=== PATIENT | male | born 1995 | race American Indian/Alaskan Native ===

== ENCOUNTER 2018-11-25 15:51 | Outpatient (REF) | payer MEDICAID, SELFPAY ==
[2018-11-25 20:10] LABS: ALT 25 U/L (12-78); AST 16 U/L (15-37); Albumin 4.3 g/dL (3.4-5.0); Alkaline Phosphatase 65 U/L (46-116); Anion Gap 10.2 mmol/L (3-11); BUN 8 mg/dL (7-18); Bilirubin, Total 0.5 mg/dL (0.2-1.0); CO2 26.8 mmol/L (21.0-32.0); CREATININE 0.99 mg/dL (0.70-1.30); Calcium 9.4 mg/dL (8.5-10.1); Chloride 105 mmol/L (98-107); Glucose 78 mg/dL (70-100); Sodium 142 mmol/L (136-145); Total Protein 6.9 g/dL (6.4-8.2)
[2018-11-27 11:07] LABS: Syphilis Serology (RPR) Negative (Negative)
[2018-11-27 11:25] LABS: HIV-1/2 Ag & Ab Screen Negative (NEGAT)
[2018-11-27 12:50] LABS: Hepatitis C Ab w Rflx HCV PCR Negative (NEGAT)
== END 2018-11-25 16:11 ==
LOC: NCHCN 15:51
PROVIDERS: PCP Family Medicine; Visit Provider Family Medicine
DX: Z11.59 Encounter for screening for other viral diseases (principal); Z72.51 High risk heterosexual behavior; Z11.4 Encounter for screening for human immunodeficiency virus [HIV]; F10.20 Alcohol dependence, uncomplicated
CPT/HCPCS: 80053; 86803; 87389; 86592

== ENCOUNTER 2019-02-22 15:43 | Outpatient (REF) | payer MEDICAID, SELFPAY ==
[2019-02-24 09:28] LABS: Hepatitis C Ab w Rflx HCV PCR Negative (NEGAT)
[2019-02-24 09:33] LABS: HIV-1/2 Ag & Ab Screen Negative (NEGAT)
[2019-02-24 11:10] LABS: Syphilis Serology (RPR) Negative (Negative)
[2019-02-24 13:59] LABS: Chlamydia Result Negative; GC Result Negative; Specimen Description URINE
== END 2019-02-22 16:03 ==
LOC: NCHCN 15:43
PROVIDERS: PCP Family Medicine; Visit Provider Family Medicine
DX: Z72.51 High risk heterosexual behavior (principal); Z11.4 Encounter for screening for human immunodeficiency virus [HIV]; Z11.3 Encounter for screening for infections with a predominantly sexual mode of transmission; Z11.59 Encounter for screening for other viral diseases
CPT/HCPCS: 86803; 87389; 87491; 87591; 86592

== ENCOUNTER 2019-04-07 15:13 | Outpatient (REF) | payer MEDICAID, SELFPAY ==
[2019-04-07 20:33] LABS: ALT 36 U/L (12-78); AST 18 U/L (15-37); Albumin 4.1 g/dL (3.4-5.0); Alkaline Phosphatase 59 U/L (46-116); Anion Gap 12.4 mmol/L (3-11); BUN 10 mg/dL (7-18); Bilirubin, Total 0.6 mg/dL (0.2-1.0); CO2 24.6 mmol/L (21.0-32.0); CREATININE 0.87 mg/dL (0.70-1.30); Calcium 9.1 mg/dL (8.5-10.1); Chloride 105 mmol/L (98-107); Glucose 75 mg/dL (70-100); Potassium 3.8 mmol/L (3.5-5.1); Sodium 142 mmol/L (136-145); Total Protein 6.7 g/dL (6.4-8.2)
[2019-04-09 11:17] LABS: HIV-1/2 Ag & Ab Screen Negative (NEGAT); Hepatitis C Ab w Rflx HCV PCR Negative (NEGAT)
[2019-04-09 13:12] LABS: Syphilis Serology (RPR) Negative (Negative)
== END 2019-04-07 15:33 ==
LOC: NCHCN 15:13
PROVIDERS: PCP Family Medicine; Visit Provider Family Medicine
DX: F10.20 Alcohol dependence, uncomplicated (principal); Z72.51 High risk heterosexual behavior; Z11.4 Encounter for screening for human immunodeficiency virus [HIV]; Z11.59 Encounter for screening for other viral diseases
CPT/HCPCS: 80053; 86803; 87389; 86592

== ENCOUNTER 2019-06-21 16:35 | Outpatient (REF) | payer MEDICAID, SELFPAY ==
[2019-06-23 11:12] LABS: Syphilis Serology (RPR) Negative (Negative)
[2019-06-23 11:26] LABS: Hepatitis C Ab w Rflx HCV PCR Negative (NEGAT)
[2019-06-23 14:03] LABS: HIV-1/2 Ag & Ab Screen Negative (NEGAT)
[2019-06-23 14:14] LABS: Chlamydia Result Negative; GC Result Negative; Specimen Description URINE
== END 2019-06-21 16:55 ==
LOC: NCHCN 16:35
PROVIDERS: PCP Family Medicine; Visit Provider Family Medicine
DX: Z72.51 High risk heterosexual behavior (principal); Z11.4 Encounter for screening for human immunodeficiency virus [HIV]; Z11.59 Encounter for screening for other viral diseases; Z11.3 Encounter for screening for infections with a predominantly sexual mode of transmission
CPT/HCPCS: 86803; 87389; 87491; 87591; 86592

== ENCOUNTER 2019-10-08 13:14 | Outpatient (REF) | payer MEDICAID, SELFPAY ==
[2019-10-11 10:41] LABS: Hepatitis C Ab w Rflx HCV PCR Negative (Negative)
[2019-10-11 10:45] LABS: HIV-1/2 Ag & Ab Screen Negative (Negative)
[2019-10-11 12:14] LABS: Syphilis Serology (RPR) Negative (Negative)
[2019-10-11 14:38] LABS: Chlamydia Result Negative (Negative); GC Result Negative (Negative)
== END 2019-10-08 13:34 ==
LOC: NCHCN 13:14
PROVIDERS: PCP Family Medicine; Visit Provider Family Medicine
DX: Z72.51 High risk heterosexual behavior (principal); Z11.4 Encounter for screening for human immunodeficiency virus [HIV]; Z11.3 Encounter for screening for infections with a predominantly sexual mode of transmission; Z11.59 Encounter for screening for other viral diseases
CPT/HCPCS: 86803; 87389; 87491; 87591; 86592

== ENCOUNTER 2020-02-21 18:28 | Outpatient (REF) | payer MEDICAID, SELFPAY ==
[2020-02-21 17:29] LABS: ALT 28 U/L (16-63); AST 20 U/L (15-37); Albumin 4.4 g/dL (3.4-5.0); Alkaline Phosphatase 58 U/L (46-116); Anion Gap 7.5 mmol/L (3-11); BUN 9 mg/dL (7-18); Bilirubin, Total 0.7 mg/dL (0.2-1.0); CO2 28.5 mmol/L (21.0-32.0); CREATININE 0.85 mg/dL (0.70-1.30); Calcium 9.1 mg/dL (8.5-10.1); Chloride 104 mmol/L (98-107); Glucose 78 mg/dL (74-106); Potassium 4.2 mmol/L (3.5-5.1); Sodium 140 mmol/L (136-145); Total Protein 6.9 g/dL (6.4-8.2)
[2020-02-22 09:47] LABS: Hepatitis C Ab w Rflx HCV PCR Negative (Negative)
[2020-02-22 10:02] LABS: Syphilis Serology (RPR) Negative (Negative)
[2020-02-22 10:36] LABS: HIV-1/2 Ag & Ab Screen Negative (Negative)
[2020-02-23 08:57] LABS: Chlamydia Result Negative (Negative); GC Result Negative (Negative)
== END 2020-02-21 18:48 ==
LOC: NCHCN 18:28
PROVIDERS: PCP Family Medicine; Visit Provider Family Medicine
DX: F10.20 Alcohol dependence, uncomplicated (principal); Z72.51 High risk heterosexual behavior; Z11.3 Encounter for screening for infections with a predominantly sexual mode of transmission; Z11.4 Encounter for screening for human immunodeficiency virus [HIV]; Z11.59 Encounter for screening for other viral diseases
CPT/HCPCS: 80053; 86803; 87389; 87491; 87591; 86592

== ENCOUNTER 2020-04-28 18:09 | Outpatient (REF) | payer MEDICAID, SELFPAY ==
[2020-05-01 10:32] LABS: HIV-1/2 Ag & Ab Screen Negative (Negative)
[2020-05-01 10:50] LABS: Hepatitis C Ab w Rflx HCV PCR Negative (Negative)
[2020-05-01 11:41] LABS: Syphilis Serology (RPR) Negative (Negative)
[2020-05-01 14:07] LABS: Chlamydia Result Negative (Negative); GC Result Negative (Negative)
== END 2020-04-28 18:29 ==
LOC: NCHCN 18:09
PROVIDERS: PCP Family Medicine; Visit Provider Family Medicine
DX: Z72.51 High risk heterosexual behavior (principal); Z11.4 Encounter for screening for human immunodeficiency virus [HIV]; Z11.3 Encounter for screening for infections with a predominantly sexual mode of transmission; Z11.59 Encounter for screening for other viral diseases
CPT/HCPCS: 86803; 87389; 87491; 87591; 86592

== ENCOUNTER 2021-04-18 14:04 | Outpatient (REF) | payer MEDICAID, SELFPAY ==
[2021-04-20 09:24] LABS: HIV-1/2 Ag & Ab Screen Negative (Negative)
[2021-04-20 09:38] LABS: Hepatitis C Ab w Rflx HCV PCR Negative (Negative)
[2021-04-20 11:05] LABS: Syphilis Serology (RPR) Negative (Negative)
== END 2021-04-18 14:05 | disposition home or self-care (01) ==
LOC: NCHCN 14:04
PROVIDERS: PCP Family Medicine; Visit Provider Family Medicine
DX: Z72.51 High risk heterosexual behavior (principal)
CPT/HCPCS: 86803; 87389; 86592

== ENCOUNTER 2021-05-03 17:13 | Outpatient (REF) | payer MEDICAID, SELFPAY ==
[2021-05-04 15:25] LABS: Chlamydia Result Negative (Negative); GC Result Negative (Negative)
== END 2021-05-03 17:14 | disposition home or self-care (01) ==
LOC: NCHCN 17:13
PROVIDERS: PCP Family Medicine; Visit Provider Family Medicine
DX: Z72.51 High risk heterosexual behavior (principal)
CPT/HCPCS: 87491; 87591

== ENCOUNTER 2021-10-04 15:02 | Outpatient (REF) | payer MEDICAID, SELFPAY ==
[2021-10-08 11:38] LABS: Hepatitis C Ab w Rflx HCV PCR Negative (Negative)
[2021-10-08 11:40] LABS: HIV-1/2 Ag & Ab Screen Negative (Negative)
[2021-10-08 15:34] LABS: Chlamydia Result Negative (Negative); GC Result Negative (Negative)
[2021-10-09 18:03] LABS: Syphilis Serology (RPR) Negative (Negative)
== END 2021-10-04 15:03 | disposition home or self-care (01) ==
LOC: NCHCN 15:02
PROVIDERS: PCP Family Medicine; Visit Provider Family Medicine
DX: Z72.51 High risk heterosexual behavior (principal); Z11.4 Encounter for screening for human immunodeficiency virus [HIV]; R51.9 Headache, unspecified; Z11.59 Encounter for screening for other viral diseases
CPT/HCPCS: 86803; 87389; 87491; 87591; 86592

== ENCOUNTER 2022-01-16 12:11 | Outpatient (REF) | payer MEDICAID, SELFPAY ==
[2022-01-17 10:11] LABS: Syphilis Serology (RPR) Negative (Negative)
[2022-01-17 10:41] LABS: Hepatitis C Ab w Rflx HCV PCR Negative (Negative)
[2022-01-17 11:16] LABS: HIV-1/2 Ag & Ab Screen Negative (Negative)
[2022-01-17 14:39] LABS: Chlamydia Result Negative (Negative)
[2022-01-17 16:47] LABS: GC Result Positive (Negative)
== END 2022-01-16 12:12 | disposition home or self-care (01) ==
LOC: NCHCN 12:11
PROVIDERS: PCP Family Medicine; Visit Provider Family Medicine
DX: R36.9 Urethral discharge, unspecified (principal); Z72.51 High risk heterosexual behavior; Z11.4 Encounter for screening for human immunodeficiency virus [HIV]; Z11.59 Encounter for screening for other viral diseases; Z11.3 Encounter for screening for infections with a predominantly sexual mode of transmission
CPT/HCPCS: 86803; 87389; 87491; 87591; 86592

== ENCOUNTER 2022-03-01 17:01 | Outpatient (REF) | payer MEDICAID, SELFPAY ==
[2022-03-01 13:37] LABS: ALT 250 U/L (16-63); AST 99 U/L (15-37); Alkaline Phosphatase 75 U/L (46-116); Anion Gap 8.2 mmol/L (3-11); BUN 12 mg/dL (7-18); Bilirubin, Total 0.4 mg/dL (0.2-1.0); CO2 26.8 mmol/L (21.0-32.0); CREATININE 0.9 mg/dL (0.70-1.30); Calcium 8.9 mg/dL (8.5-10.1); Chloride 105 mmol/L (98-107); Glucose 99 mg/dL (74-106); Potassium 3.9 mmol/L (3.5-5.1); Sodium 140 mmol/L (136-145); Total Protein 7.2 g/dL (6.4-8.2)
[2022-03-04 10:31] LABS: HIV-1/2 Ag & Ab Screen Negative (Negative)
[2022-03-04 12:34] LABS: Syphilis Serology (RPR) Negative (Negative)
[2022-03-04 15:28] LABS: Chlamydia Result Negative (Negative); GC Result Negative (Negative)
== END 2022-03-01 17:02 | disposition home or self-care (01) ==
LOC: NCHCN 17:01
PROVIDERS: PCP Family Medicine; Visit Provider Physician Assistant
DX: Z72.51 High risk heterosexual behavior (principal); Z11.4 Encounter for screening for human immunodeficiency virus [HIV]; Z11.3 Encounter for screening for infections with a predominantly sexual mode of transmission
CPT/HCPCS: 80053; 87389; 87491; 87591; 86592

== ENCOUNTER 2022-04-22 02:23 | Outpatient (CLI) | payer MEDICAID, SELFPAY ==
[2022-04-23 09:24] LABS: Source Nasal/Nares
[2022-04-23 12:03] LABS: COVID-19 PCR Negative (Negative)
== END 2022-04-22 02:24 | disposition home or self-care (01) ==
LOC: LBO 02:23
PROVIDERS: Surgery; PCP Family Medicine; Visit Provider Surgery
DX: Z01.818 Encounter for other preprocedural examination (principal); Z20.822 Contact with and (suspected) exposure to COVID-19
CPT/HCPCS: 87635

== ENCOUNTER 2022-04-24 06:05 | Day surgery (SDC) | payer MEDICAID, SELFPAY ==
[2022-04-24] VITALS (10 sets, daily range): BP systolic 92–133; BP diastolic 37–84; PULSE 48–78; RESP 10–16; TEMP 36–36.7; O2SAT 94–100; BMI 33.7
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
--- NOTE | 2022-04-24 05:08 | W.PM.DSUDISC ---
Discharge Plan Disposition Patient Disposition: HOME Condition: Good Discharge Details Reason For Visit: umbilical hernia repair Attending Provider: Arielle Serrano Primary Care Provider: Meme August Home Meds and New Rx's Prescriptions: New oxycodone 5 mg tablet 5 mg PO Q6H PRNQty: 14 0RF Continued fluoride (sodium) [SF 5000 Plus] 1.1 % cream 1 applic dental DAILY albuterol sulfate [ProAir HFA] 90 mcg/actuation HFA aerosol inhaler 2 puff inhalation Q6H PRN dextroamphetamine-amphetamine [Adderall] 20 MG tablet 20 mg PO DAILY Label Comments: 04/24/22 pt reports he hasnt taken adderall in 6 months emtricitabine-tenofovir (TDF) [Truvada] 1 EACH tablet 1 ea PO DAILY Discharge Instructions Instructions: Umbilical Hernia Repair (DC) Additional Instructions: Activity at Home after surgery: 1. Make sure you walk outside at least 4 times per day 2. You should be able to climb a flight of stairs 3. No driving while in pain or taking pain medications 4. No strenuous activity or heavy lifting for 4 weeks (open surgery) Diet, Nutrition, & wound healin. Avoid alcohol until after you are recovered from your surgery 2. Make sure to eat plenty of lean protein (meat, fish, eggs, cottage cheese, beans) 3. Eat a variety of fruits and vegetables. Eat plenty of high fiber foods to avoid constipation. 4. Drink plenty of liquids to stay hydrated and avoid constipation Pain Medications: 1. Tylenol 650mg every 6 hours as needed and Ibuprofen 600 mg every 6 hours as needed. You may alternate between the 2 medications every 3 hours 2. If a narcotic has been prescribed take as directed only for breakthrough pain For Constipation: 1. Take Milk of Magnesia or MiraLax as needed for constipation Other: 1. You may shower daily. Do not scrub the incisions 2. Do not soak the incisions for 1 week 3. You may alternate ice and heat as needed for pain and swelling Wound Care: 1. Keep the incisions clean and dry Please call our office if you develop: 1. Fevers >101.5 2. Nausea or Vomiting 3. Worsening pain 4. Redness and thick discharge from the wounds If after hours please call the Hospital at and ask to speak to the on-call surgeon Stand Alone Forms: Anesthesia Discharge Inst., Robin De La Cruz (DSU) Referrals: Arielle Serrano MD [ [facility] STAFF PHYSICIAN] - 05/07/22 8:00 am Activity:: as above Remove Dressings/Wound Care:: Do Not Remove Shower/Bathe:: 24 hours Diet:: As Tolerated Discharge Orders Discharge Orders: Discharge Order (Routine); Ordered 04/24/22 Ordered By: Arielle Serrano DS: Diagnosis Discharge Diagnosis (1) Umbilical hernia: Status: Acute (2) Alcohol dependence: Status: Acute
--- NOTE | 2022-04-24 05:09 | W.PM.OP ---
Date of service: 04/24/22 Time of Service: 08:43 Operative Note Operative Note DATE OF PROCEDURE: 04/24/22 PRE-OP DIAGNOSIS: umbilical hernia POST-OP DIAGNOSIS: same PROCEDURE: Umbilical hernia repair with mesh SURGEON: Arielle Serrano ANESTHESIA TYPE: Local By Surgeon and General LMA/ETT Refer to Anesthesia Record ESTIMATED BLOOD LOSS: 15 PATHOLOGY: none sent COMPLICATIONS: None Patient was transported to: same day Patient's condition: stable Implants: Ventralex ST Hernia Patch 6.4 cm: REF- [id number] LOT- [id number] 2023-05-05 Indications: Mr. Brewer is a? pleasant 26-year-old gentleman with a small umbilical hernia? which has some incarcerated fat in it.? He is otherwise pretty healthy.? He does have a history of asthma but has not had to use his inhalers for quite some time.? He does drink quite a bit of alcohol.? He admits to 6-12 alcoholic beverages per day.? We discussed surgery in detail including the risks, benefits and complications. Findings: over2 small hernias side byside. Facial bridge cut. Hernia defect 1.5 cm x 2 cm Procedure Description: After informed consent was obtained the patient was taken to the operating room and placed in a supine position. Monitors and SCDs were applied and a timeout was done. The patient's name, date of , procedure type, procedure site, allergies to medications, preoperative antibiotic, and DVT prophylaxis were all reviewed. Fire risk was assessed. Next anesthesia did a bilateral rectus block under ultrasound guidance. Please see their separate dictation. Once anesthesia was done the abdomen was prepped and draped in a sterile surgical fashion. 0.5% Bupivacaine was injected into the dermis just under the umbilicus. An incision was made with a 10 blade overthe umbilicus. Dissection was done with cautery through the subcutaneous tissues and through the umbilical stalk down to the fascia. The hernia defect was identified and measured 1.5 x 2 cm. The peritoneum was entered and swept for adhesions. no adhesions were noted. A 6.4 cm round mesh was then placed under the peritoneum and secured in 4 quarters with 2-0 Proline. Once the mesh was secured the tissues were irrigated with some normal saline. No bleeding was identified. The fascia was closed over the mesh with 0 vicryl running suture. 2-0 Vicryl was used to secure the umbilicus down to the fascia. The subcutaneous tissue was re-approximated with 2-0 vicryl. The dermis was re-approximated with a running 4-0 Monocryl. The skin was cleaned and dried and skin affix was applied. The patient was woken up and taken back to recovery in stable condition. There were no immediate complications. Sponge, instrument and needle counts were correct at the end of the case x2.
[2022-04-24] MEDS: Acetaminophen 500 MG TAB 1000 MG PO (06:48)
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
[2022-04-24] MEDS: Gabapentin 300 MG CAP PO (06:49)
[2022-04-24] MEDS: Lactated Ringers 1,000 ML 80 ML IV (06:58)
[2022-04-24] MEDS: ceFAZolin 2 GM/50 ML BAG IVPB (07:35)
--- NOTE | 2022-04-24 08:02 | W.ANESNERVE ---
Nerve Block Single Injection Procedure Date and Time Date Performed: 04/24/22 Procedure Start: 07:40 Location Where Procedure Performed Procedure Location: Operating Room Procedure Stop: 07:50 Reason Performed: Postoperative Analgesia Requesting Provider: Arielle Serrano Timeout Performed Timeout Performed: Yes Monitoring Used ECG, Blood Pressure, SpO2, ETCO2 and See EMR for corresponding vital signs Sterility Sterility: Hand Hygiene, Surgical Cap, Surgical Mask, Sterile Gloves and Chlorhexidine Sedation Given During Procedure Sedation Given (Indicate Dose Given): No Sedation given Patient Mental Status Patient Mental Status: Performed under general anesthesia Nerve Block 1st Nerve Block: Laterality: Bilateral Block Type: Rectus Sheath (Bilateral) Needle / Catheter Used: 100mm SonoPlex II Local Anesthetic Bolus (Indicate Dose Given): Half of Total block solution given into each side and Bupivacaine 0.5% Dose:: 20cc Additives (Indicate Dose Given): Precedex Dose:: 100mcg Ultrasound: Sterile probe cover and gel used Ultrasound Image Saved?: Yes Nerve Stimulator: Not Used Paresthesia: None Procedure Tolerated: No Complications Procedure Outcome: Successful Performed By: Kaity Davis Supervised By: Cari Lauren
[2022-04-24] MEDS: Bupivacaine 0.25% Pres-Free 30 ML VIAL (08:25)
--- NOTE | 2022-04-24 10:30 | W.ANESPOSTOP ---
Postoperative Evaluation Date, Time and Location Date Performed: 04/24/22 Time Performed: 10:30 Patient Location: Day Surgery Unit Vital Signs Most Recent Imported Vital Signs: Most Recent Vital Signs Temp Pulse Resp BP Pulse Ox 36 C L 51 L 14 99/60 L 95 04/24/22 10:01 04/24/22 10:01 04/24/22 10:01 04/24/22 10:01 04/24/22 10:01 Pain Score Most Recent Pain Score: Most Recent Pain Score Pain Level 2 04/24/22 10:01 Assessment Mental Status: Awake (Alert & Oriented to Patient Baseline) Airway and Respiratory Function: Patent airway with normal (patient baseline) respiratory exam Cardiovascular Function: Hemodynamically Stable Hydration Status: Adequately Hydrated Nausea & Vomiting: No Nausea or Vomiting Pain: Pain is tolerable per patient Peripheral Nerve Block: Regional nerve block not resolved at time of post operative discharge
== END 2022-04-24 11:05 | disposition home or self-care (01) ==
PROVIDERS: PCP Family Medicine; Visit Provider Surgery
PROC: (CPT 49587; principal; 2022-04-24 07:30)
DX: K42.9 Umbilical hernia without obstruction or gangrene (principal); F10.20 Alcohol dependence, uncomplicated; F17.210 Nicotine dependence, cigarettes, uncomplicated; J45.909 Unspecified asthma, uncomplicated; E66.9 Obesity, unspecified
CPT/HCPCS: 49587; 76942; C1781; J0690; J1100; J1885; J2405; J2704

== ENCOUNTER 2022-04-29 16:12 | Outpatient (REF) | payer MEDICAID, SELFPAY ==
[2022-04-29 19:44] LABS: ALT 65 U/L (16-63); AST 33 U/L (15-37); Albumin 3.8 g/dL (3.4-5.0); Alkaline Phosphatase 56 U/L (46-116); Bilirubin, Direct 0.1 mg/dL (0.0-0.2); Bilirubin, Total 0.4 mg/dL (0.2-1.0); Total Protein 6.7 g/dL (6.4-8.2)
[2022-05-01 09:46] LABS: HIV-1/2 Ag & Ab Screen Negative (Negative)
[2022-05-01 11:46] LABS: Syphilis Serology (RPR) Negative (Negative)
[2022-05-01 23:17] LABS: Chlamydia Result Negative (Negative); GC Result Negative (Negative)
== END 2022-04-29 16:13 | disposition home or self-care (01) ==
LOC: NCHCN 16:12
PROVIDERS: PCP Family Medicine; Visit Provider Family Medicine
DX: Z72.51 High risk heterosexual behavior (principal); R79.89 Other specified abnormal findings of blood chemistry; Z11.4 Encounter for screening for human immunodeficiency virus [HIV]; Z11.3 Encounter for screening for infections with a predominantly sexual mode of transmission
CPT/HCPCS: 80076; 87389; 87491; 87591; 86592

== ENCOUNTER 2022-08-30 14:01 | Outpatient (REF) | payer MEDICAID, SELFPAY ==
[2022-08-30 21:19] LABS: ALT 325 U/L (16-63); AST 161 U/L (15-37); Albumin 4.3 g/dL (3.4-5.0); Alkaline Phosphatase 78 U/L (46-116); Bilirubin, Direct 0.2 mg/dL (0.0-0.2); Bilirubin, Total 0.7 mg/dL (0.2-1.0); Total Protein 7.2 g/dL (6.4-8.2)
[2022-09-03 10:16] LABS: HIV-1/2 Ag & Ab Screen Negative (Negative)
[2022-09-03 10:25] LABS: Hepatitis C Ab w Rflx HCV PCR Negative (Negative)
[2022-09-03 11:40] LABS: Syphilis Serology (RPR) Negative (Negative)
[2022-09-03 12:08] LABS: Chlamydia Result Negative (Negative); GC Result Negative (Negative)
== END 2022-08-30 14:02 | disposition home or self-care (01) ==
LOC: NCHCN 14:01
PROVIDERS: PCP Family Medicine; Visit Provider Family Medicine
DX: R79.89 Other specified abnormal findings of blood chemistry (principal); Z72.51 High risk heterosexual behavior; Z11.4 Encounter for screening for human immunodeficiency virus [HIV]; Z11.59 Encounter for screening for other viral diseases
CPT/HCPCS: 80076; 86803; 87389; 87491; 87591; 86592

== ENCOUNTER 2022-10-17 01:19 | Outpatient (CLI) | payer MEDICAID, SELFPAY ==
--- NOTE | 2022-10-17 | DI.US_ITS ---
Exam(s) US ABDOMEN EXAM: US ABDOMEN CLINICAL HISTORY: ELEVATED LFT'S,R79.89 TECHNIQUE: Ultrasound of complete upper abdomen performed using standard protocol. COMPARISON: US POCUS EXAM from 04/24/2022 FINDINGS: There is no ascites evident. LIVER: Hyperechoic indicating steatosis. There are no discrete focal hepatic lesions evident. GALLBLADDER/BILIARY: There are no gallstones. No gallbladder wall edema nor pericholecystic fluid. The common hepatic duct isnot dilated, measuring 3-4mm at the level of rebecca hepatis. PANCREAS: There is no evidence of pancreatic mass nor dilatation of the pancreatic duct. SPLEEN: The spleen is not enlarged and there are no intrasplenic lesions evident. KIDNEYS:Kidneys exhibit normal size with no evidence of solid mass, calculus, nor hydronephrosis. No cortical cysts evident. ABDOMINAL AORTA: There is no evidence of abdominal aortic aneurysm. IVC: Normal diameter where visualized. IMPRESSION: 1. No evidence of cholelithiasis nor dilatation of the biliary tree. 2. Hepatic steatosis. Correlation with appropriate hepatic blood work recommended. There are no fo sulema hepatic lesions identified. 3. No other significant findings on this ultrasound examination of the upper abdomen. Also no ascit es evident. DATA REPOSITORY:
== END 2022-10-17 01:39 ==
LOC: DI 01:19
PROVIDERS: PCP Family Medicine; Visit Provider Family Medicine
DX: K76.0 Fatty (change of) liver, not elsewhere classified (principal)
CPT/HCPCS: 76700

== ENCOUNTER 2023-01-08 18:58 | Outpatient (REF) | payer MEDICAID, SELFPAY ==
[2023-01-08 22:59] LABS: Iron 99 ug/dL (65-175); Total Iron Binding Capacity 346 ug/dL (250-450); Transferrin Sat 29 % (20-55)
[2023-01-08 23:13] LABS: ALT 108 U/L (16-63); AST 75 U/L (15-37); Albumin 4.2 g/dL (3.4-5.0); Alkaline Phosphatase 67 U/L (46-116); Bilirubin, Total 0.4 mg/dL (0.2-1.0); Ferritin 395 ng/mL (26-388); Total Protein 7.2 g/dL (6.4-8.2)
[2023-01-08 23:22] LABS: Bilirubin, Direct 0.1 mg/dL (0.0-0.2)
[2023-01-09 23:12] LABS: Campylobacter PCR Negative (Negative); Salmonella PCR Negative (Negative); Shiga Toxin PCR Negative (Negative); Shigella/Enteroinvasive Ecoli Negative (Negative)
[2023-01-10 10:15] LABS: HBs Antibody, Quant 323.3 mIU/mL (See Note); Hepatitis B Surface Ab Positive (See Note)
[2023-01-10 10:37] LABS: Hep B Core Antibody Negative (Negative)
[2023-01-10 10:38] LABS: HIV-1/2 Ag & Ab Screen Negative (Negative)
[2023-01-10 10:40] LABS: Hepatitis C Ab w Rflx HCV PCR Negative (Negative)
[2023-01-10 12:15] LABS: Syphilis Serology (RPR) Negative (Negative)
[2023-01-10 14:52] LABS: GC Result Negative (Negative)
[2023-01-10 16:03] LABS: Chlamydia Result Positive (Negative)
== END 2023-01-08 18:59 | disposition home or self-care (01) ==
LOC: LBN 18:58
PROVIDERS: PCP Family Medicine; Visit Provider Family Medicine
DX: R19.7 Diarrhea, unspecified (principal); R79.89 Other specified abnormal findings of blood chemistry; Z72.51 High risk heterosexual behavior; Z11.59 Encounter for screening for other viral diseases; Z11.4 Encounter for screening for human immunodeficiency virus [HIV]; Z11.3 Encounter for screening for infections with a predominantly sexual mode of transmission; Z01.84 Encounter for antibody response examination
CPT/HCPCS: 80076; 86704; 86706; 86803; 87329; 87389; 87491; 87493; 87505; 87591; 82728; 83540; 83550; 86592; 87177

== ENCOUNTER 2023-01-09 10:05 | Outpatient (REF) | payer MEDICAID, SELFPAY ==
[2023-01-09 12:01] LABS: C Diff PCR Negative (Negative)
== END 2023-01-09 10:06 | disposition home or self-care (01) ==
LOC: NCHCN 10:05
PROVIDERS: PCP Family Medicine; Visit Provider Physician Assistant Medical
DX: R19.7 Diarrhea, unspecified (principal)
CPT/HCPCS: 87493

== ENCOUNTER 2023-07-21 11:32 | Outpatient (REF) | payer MEDICAID, SELFPAY ==
[2023-07-21 14:31] LABS: HCT 42.1 % (40.0-50.0); HGB 14.6 g/dL (13.5-17.5); MCH 32.2 pg (27.0-33.0); MCHC 34.7 % (32.0-36.0); MCV 93 fL (80-95); Platelet Count 260 10^3/uL (130-400); RBC 4.54 10^6/uL (4.36-5.78); RDW 11.6 % (11.8-14.1); RDW-SD 39.8 fL; WBC 8.01 10^3/uL (4.4-10.8)
[2023-07-21 14:44] LABS: ALT 101 U/L (16-63); AST 38 U/L (15-37); Albumin 3.8 g/dL (3.4-5.0); Alkaline Phosphatase 62 U/L (46-116); Anion Gap 8.6 mmol/L (3-11); BUN 9 mg/dL (7-18); Bilirubin, Direct 0.1 mg/dL (0.0-0.2); Bilirubin, Total 0.5 mg/dL (0.2-1.0); CO2 27.4 mmol/L (21.0-32.0); Calcium 9.6 mg/dL (8.5-10.1); Chloride 105 mmol/L (98-107); Estimated GFR 105.14 (mL/min/1.73m2); Glucose 92 mg/dL (74-106); Sodium 141 mmol/L (136-145); Total Protein 6.7 g/dL (6.4-8.2)
[2023-07-22 08:39] LABS: HIV-1/2 Ag & Ab Screen Negative (Negative)
[2023-07-22 10:17] LABS: Syphilis Serology (RPR) Negative (Negative)
[2023-07-22 14:12] LABS: Chlamydia Result Negative (Negative); GC Result Negative (Negative)
== END 2023-07-21 11:33 | disposition home or self-care (01) ==
LOC: NCHCN 11:32
PROVIDERS: PCP Family Medicine; Visit Provider Family Medicine
DX: R79.89 Other specified abnormal findings of blood chemistry (principal); Z86.19 Personal history of other infectious and parasitic diseases; Z72.51 High risk heterosexual behavior; F10.20 Alcohol dependence, uncomplicated
CPT/HCPCS: 80048; 80076; 85027; 87389; 87491; 87591; 86592

== ENCOUNTER 2023-10-29 13:15 | Outpatient (REF) | payer MEDICAID, SELFPAY ==
[2023-10-29 16:05] LABS: ALT 25 U/L (16-63); AST 18 U/L (15-37); Alkaline Phosphatase 60 U/L (46-116); Bilirubin, Direct 0.1 mg/dL (0.0-0.2); Bilirubin, Total 0.5 mg/dL (0.2-1.0); Total Protein 6.6 g/dL (6.4-8.2)
[2023-10-30 09:10] LABS: Syphilis Serology (RPR) Negative (Negative)
[2023-10-30 09:48] LABS: Hepatitis C Ab w Rflx HCV PCR Negative (Negative)
[2023-10-30 10:04] LABS: HIV-1/2 Ag & Ab Screen Negative (Negative)
[2023-10-30 12:39] LABS: Chlamydia Result Negative (Negative); GC Result Negative (Negative)
== END 2023-10-29 13:16 | disposition home or self-care (01) ==
LOC: NCHCN 13:15
PROVIDERS: PCP Family Medicine; Referring Provider Family Medicine; Visit Provider Family Medicine
DX: Z72.52 High risk homosexual behavior (principal); Z11.4 Encounter for screening for human immunodeficiency virus [HIV]; Z11.59 Encounter for screening for other viral diseases; Z11.3 Encounter for screening for infections with a predominantly sexual mode of transmission
CPT/HCPCS: 80076; 86803; 87389; 87491; 87591; 86592

== ENCOUNTER → 2023-12-16 04:13 | Outpatient (CLI) | payer MEDICAID, SELFPAY ==
--- NOTE | 2023-12-16 06:15 | DI.CT_ITS ---
Exam(s) CT ABDOMEN PELVIS W EXAM: CT ABDOMEN PELVIS W CLINICAL HISTORY: pain at umbilical hernia repair site,k42.9,l76.82. TECHNIQUE: Imaging Protocol: Axial computed tomography images with coronal and sagittal reformatted images were created and reviewed CONTRAST MATERIAL: Intravenous: Omnipaque 350 Contrast volume:100 ml Oral: yes COMPARISON: No exams were available for comparison FINDINGS: ABDOMEN and PELVIS: Lung Bases: No acute findings. Liver: Normal density. No measurable mass. Gallbladder and biliary tract: No radiodense calculus or biliary dilation. Pancreas: Normal density. No abnormal calcifications or inflammatory process. No evidence of mass. Spleen: Normal. Kidneys: Normal size, contour and axis. No radiodense stones. No obstructive uropathy. No suspicious masses seen. Adrenal glands: No masses seen. Vasculature: Abdominal aorta non-dilated. Soft tissues: Evidence umbilical hernia repair. The appearance is unremarkable. There is no evidenc e of recurrence hernia or inflammation. No fluid collection. Bladder: No gross wall thickening. No calculi.No focal mass. Bowel: No obstruction. No bowel wall thickening. Appendix normal. Peritoneal cavity: No ascites. No focal collection or mesenteric inflammatory response. Bones: Unremarkable for age. Reproductive organs: Within normal limits. Lymph nodes: Unremarkable. IMPRESSION:: Status post and umbilical hernia repair. No evidence of recurrence hernia. RADIATION DOSE DELIVERED: Total DLP DATA REPOSITORY: All CT scans at this facility are submitted to the National Radiology Data Registry (NRDR) Dose Index Registry (DIR) with the [employer] (A[employer]). RADIATION OPTIMIZATION: All CT scans at this facility use at least one of these dose optimization te chniques: automated exposure control; mA and/or kV adjustment per patient size (includes targeted exa ms where dose is matched to clinical indication); or iterative reconstruction.
[2023-12-16] MEDS: Barium Sulfate 2% W/V-Berry Smoothie 450 ML BTL PO ×2 (07:31→07:32)
[2023-12-16] MEDS: Normal Saline - Diluent 50 ML VIAL IJ (09:01)
[2023-12-16] MEDS: Omnipaque 350 MG/ML 500 ML BTL-Imaging package IJ (09:02)
== END ==
PROVIDERS: PCP Family Medicine; Visit Provider Surgery
DX: K42.9 Umbilical hernia without obstruction or gangrene (principal); L76.82 Other postprocedural complications of skin and subcutaneous tissue; Z98.890 Other specified postprocedural states
CPT/HCPCS: 74177

== ENCOUNTER 2024-02-13 14:30 | Outpatient (REF) | payer MEDICAID, SELFPAY ==
[2024-02-13 16:14] LABS: ALT 26 U/L (16-63); AST 14 U/L (15-37); Albumin 4.2 g/dL (3.4-5.0); Alkaline Phosphatase 68 U/L (46-116); Bilirubin, Direct 0.1 mg/dL (0.0-0.2); Bilirubin, Total 0.5 mg/dL (0.2-1.0); Total Protein 6.7 g/dL (6.4-8.2)
[2024-02-13 23:22] LABS: HIV-1/2 Ag & Ab Screen Negative (Negative)
[2024-02-13 23:24] LABS: Hepatitis C Ab w Rflx HCV PCR Negative (Negative)
[2024-02-14 13:27] LABS: Chlamydia Result Negative (Negative); GC Result Negative (Negative)
[2024-02-16 13:28] LABS: Syphilis Serology (RPR) Negative (Negative)
== END 2024-02-13 14:31 | disposition home or self-care (01) ==
LOC: NCHCN 14:30
PROVIDERS: PCP Family Medicine; Visit Provider Family Medicine
DX: Z72.52 High risk homosexual behavior (principal); Z11.3 Encounter for screening for infections with a predominantly sexual mode of transmission; Z11.4 Encounter for screening for human immunodeficiency virus [HIV]; Z11.59 Encounter for screening for other viral diseases
CPT/HCPCS: 80076; 86803; 87389; 87491; 87591; 86592

== ENCOUNTER 2025-04-18 16:58 | Outpatient (REF) | payer MEDICAID, SELFPAY ==
[2025-04-18 21:21] LABS: ALT 35 U/L (16-63); AST 17 U/L (15-37); Albumin 4.3 g/dL (3.4-5.0); Alkaline Phosphatase 69 U/L (46-116); Anion Gap 8.3 mmol/L (3-11); BUN 15 mg/dL (7-18); Bilirubin, Total 0.4 mg/dL (0.2-1.0); CO2 27.7 mmol/L (21.0-32.0); Calcium 9.5 mg/dL (8.5-10.1); Chloride 105 mmol/L (98-107); Estimated GFR 117.83 (mL/min/1.73m2); Glucose 94 mg/dL (74-106); Potassium 4.1 mmol/L (3.5-5.1); Sodium 141 mmol/L (136-145); Total Protein 6.7 g/dL (6.4-8.2)
[2025-04-19 22:04] LABS: HIV-1/2 Ag & Ab Screen Negative (Negative)
[2025-04-20 11:54] LABS: Chlamydia Result Negative (Negative); GC Result Negative (Negative)
[2025-04-20 16:27] LABS: Hepatitis C Ab w Rflx HCV PCR Negative (Negative)
== END 2025-04-18 16:59 | disposition home or self-care (01) ==
LOC: NCHCN 16:58
PROVIDERS: PCP Family Medicine; Visit Provider Family Medicine
DX: Z72.52 High risk homosexual behavior (principal)
CPT/HCPCS: 80053; 86803; 87389; 87491; 87591

== ENCOUNTER 2025-06-14 21:11 | Outpatient (REF) | payer MEDICAID, SELFPAY ==
[2025-06-16 10:52] LABS: Chlamydia Result Negative (Negative); GC Result Negative (Negative)
[2025-06-16 18:50] LABS: Chlamydia Result Negative (Negative); GC Result Negative (Negative)
== END 2025-06-14 21:12 | disposition home or self-care (01) ==
LOC: LBN 21:11
PROVIDERS: PCP Family Medicine; Visit Provider Nurse Practitioner Family
DX: Z11.3 Encounter for screening for infections with a predominantly sexual mode of transmission (principal)
CPT/HCPCS: 87491; 87591

== ENCOUNTER 2025-06-17 21:31 | Emergency (ER) | payer MEDICAID, SELFPAY ==
[2025-06-17 21:35] VITALS: BP 147/85; PULSE 84; RESP 16; TEMP 36.9; O2SAT 98
[2025-06-17 21:40] VITALS: BP 147/85; PULSE 84; RESP 16; TEMP 36.9; O2SAT 98
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
--- NOTE | 2025-06-17 22:05 | DI.CT_ITS ---
Exam(s) CT ABDOMEN PELVIS W EXAM: CT ABDOMEN PELVIS W CLINICAL HISTORY: umbilical hernia TECHNIQUE: Imaging Protocol: Axial computed tomography images with coronal and sagittal reformatted images were created and reviewed. CONTRAST MATERIAL: Intravenous: Omnipaque 350 contrast volume:75 mL Oral: No COMPARISON: CT CT ABDOMEN PELVIS W from 12/16/2023 FINDINGS: ABDOMEN: Lung Bases: No acute abnormality. Liver: Normal density. No measurable mass. Portal, Superior Mesenteric, and Splenic Veins: Unremarkable. Gallbladder and Biliary Tract: No radiodense calculus or dilation. Pancreas: Normal density, no abnormal calcifications or inflammatory process. Spleen: Normal. Adrenals: No masses seen. Kidneys: Normal size, contour and axis. No radiodense stones or obstructive uropathy. No masses seen. Abdominal Aorta: Abdominal portion non-dilated. Bowel: No obstruction or bowel wall thickening. Appendix is unremarkable. Peritoneal Cavity: No ascites, collection or mesenteric inflammatory response. No free air. Lymph Nodes: Within normal limits. Bones: Within normal limits for the patient's age. Soft Tissues: Unremarkable. There is no evidence of a significant anterior abdominal wall hernia. PELVIS: Bladder: Symmetric distention, no gross wall thickening. Reproductive Organs: Unremarkable as visualized. Lymph Nodes: Within normal limits. Bones: Within normal limits for the patient's age. IMPRESSION: 1. No acute abdominal or pelvic process. 2. The preliminary [facility] report was reviewed. RADIATION DOSE DELIVERED: 495.26mGy.cm Total DLP DATA REPOSITORY: All CT scans at this facility are submitted to the National Radiology Data Registry (NRDR) Dose Index Registry (DIR) with the [employer] ([employer]). RADIATION OPTIMIZATION: All CT scans at this facility use at least one of these dose optimization techniques: automated exposure control; mA and/or kV adjustment per patient size (includes targeted exams where dose is matched to clinical indication); or iterative reconstruction.
[2025-06-17] MEDS: Normal Saline - Diluent 50 ML VIAL IJ (22:32)
[2025-06-17] MEDS: Omnipaque 350 MG/ML 100 ML BTL IJ (22:32)
[2025-06-17] MEDS: Normal Saline Flush 10 ML SYR IVP (22:32)
[2025-06-17 22:33] LABS: Abs Immature Grans 0.01 10^3/uL (0.0-0.06); HCT 38.0 % (40.0-50.0); HGB 12.8 g/dL (13.5-17.5); Immature Grans % 0.1 %; MCH 31.4 pg (27.0-33.0); MCHC 33.7 % (32.0-36.0); MCV 93 fL (80-95); MPV 9.0 fL (8.0-11.0); Platelet Count 200 10^3/uL (130-400); RBC 4.07 10^6/uL (4.36-5.78); RDW 12.2 % (11.8-14.1); RDW-SD 42.0 fL; WBC 7.79 10^3/uL (4.4-10.8)
[2025-06-17 22:38] LABS: Glucose Negative (Negative)
[2025-06-17 22:49] LABS: ALT 28 U/L (16-63); AST 14 U/L (15-37); Albumin 3.8 g/dL (3.4-5.0); Alkaline Phosphatase 71 U/L (46-116); Anion Gap 9.3 mmol/L (3-11); BUN 13 mg/dL (7-18); Bilirubin, Total 0.3 mg/dL (0.2-1.0); CO2 27.7 mmol/L (21.0-32.0); Calcium 8.5 mg/dL (8.5-10.1); Chloride 106 mmol/L (98-107); Estimated GFR 117.83 (mL/min/1.73m2); Glucose 93 mg/dL (74-106); Potassium 3.7 mmol/L (3.5-5.1); Sodium 143 mmol/L (136-145); Total Protein 6.3 g/dL (6.4-8.2)
--- NOTE | 2025-06-17 23:29 | DI.[facility]_ITS ---
PROCEDURE INFORMATION: Exam: CT Abdomen And Pelvis With Contrast Exam date and time: 06/17/2025 10:30 PM Age: 30 years old Clinical indication: Abdominal pain and other: PT sts pain in groin region; Additional info: H/o umbilical hernia x 4 yrs ago TECHNIQUE: Imaging protocol: Computed tomography of the abdomen and pelvis with contrast. Contrast material: OMNI 350; Contrast volume: 75 ml; Contrast route: INTRAVENOUS (IV); COMPARISON: CT ABDOMEN PELVIS W 12/16/2023 9:08 AM FINDINGS: Lungs: Lung bases are clear. Liver: The liver has a normal appearance. Gallbladder and biliary ducts: The gallbladder is contracted. Pancreas: The pancreas demonstrates normal size. No pancreatic ductal dilatation. Spleen: The spleen demonstrates normal size. Adrenal glands: The adrenal glands have a normal appearance. Kidneys and ureters: The kidneys are normal in size. Stomach and bowel: The bowel demonstrates overall normal caliber and wall thickness. Appendix: The appendix is thin walled. Intraperitoneal space: Unremarkable. No free air. No significant fluid collection. Vasculature: The IVC and aorta have a normal appearance. Lymph nodes: No enlarged lymph nodes. Urinary bladder: The bladder is thin walled and fluid filled. Reproductive: Unremarkable as visualized. Bones/joints: Bones have a normal appearance. No acute fracture or suspicious bone lesion. Soft tissues: No inguinal hernias. No ventral hernias. Other findings: Right IMPRESSION: 1. No acute intra-abdominal findings. 2. Normal appendix. Dictated and Authenticated by: Arlene Velazquez MD. Orderin Patricia Uribe MD
[2025-06-18 00:26] VITALS: BP 126/64; PULSE 69; RESP 16; O2SAT 98
== END 2025-06-18 00:28 | disposition home or self-care (01) ==
PROVIDERS: Emergency Provider Nurse Practitioner Family; PCP Family Medicine
DX: K42.9 Umbilical hernia without obstruction or gangrene (principal); R10.33 Periumbilical pain
CPT/HCPCS: 99283; 99285; 36415; 80053; 74177; 81003; 83605; 85025; J3490

== ENCOUNTER 2025-06-20 02:41 | Outpatient (CLI) | payer MEDICAID, SELFPAY ==
--- NOTE | 2025-06-20 14:40 | DI.US_ITS ---
Exam(s) US HERNIA EXAM: US HERNIA CLINICAL HISTORY: evaluate umbilical hernia,umbilical pain,r10.33. TECHNIQUE: Ultrasound was performed using standard protocol. COMPARISON: CT CT ABDOMEN PELVIS W from 06/17/2025 FINDINGS: Sonographic assessment utilizing grayscale and color Doppler imaging was performed and targeted to the area of clinical concern. There is no evidence of a recurrent umbilical hernia. IMPRESSION: There is no evidence of a recurrent umbilical hernia. DATA REPOSITORY:
== END 2025-06-20 03:01 ==
LOC: DI 02:41
PROVIDERS: PCP Family Medicine; Visit Provider Nurse Practitioner Family
DX: R10.33 Periumbilical pain (principal)
CPT/HCPCS: 76857

== ENCOUNTER 2025-06-22 16:11 | Outpatient (REF) | payer MEDICAID, SELFPAY ==
[2025-06-22 21:12] LABS: HCT 39.7 % (40.0-50.0); HGB 13.6 g/dL (13.5-17.5); MCH 31.4 pg (27.0-33.0); MCHC 34.3 % (32.0-36.0); MCV 92 fL (80-95); MPV 10.6 fL (8.0-11.0); Platelet Count 211 10^3/uL (130-400); RBC 4.33 10^6/uL (4.36-5.78); RDW 12.1 % (11.8-14.1); RDW-SD 40.9 fL; WBC 8.31 10^3/uL (4.4-10.8)
[2025-06-22 21:23] LABS: Iron 48 ug/dL (65-175); Total Iron Binding Capacity 254 ug/dL (250-450); Transferrin Sat 19 % (20-55)
[2025-06-22 21:52] LABS: Ferritin 181 ng/mL (26-388); Folate 16.4 ng/mL (8.6-20.0); Vitamin B12 679 pg/mL (193-986)
[2025-06-23 18:17] LABS: HIV-1/2 Ag & Ab Screen Negative (Negative)
[2025-06-23 18:22] LABS: Hepatitis C Ab w Rflx HCV PCR Negative (Negative)
[2025-06-24 12:10] LABS: Syphilis Serology (RPR) Negative (Negative)
[2025-06-24 12:19] LABS: Chlamydia Result Negative (Negative); GC Result Negative (Negative)
[2025-06-24 12:55] LABS: Chlamydia Result Negative (Negative); GC Result Negative (Negative)
== END 2025-06-22 16:12 | disposition home or self-care (01) ==
LOC: NCHCN 16:11
PROVIDERS: PCP Family Medicine; Visit Provider Family Medicine
DX: Z72.52 High risk homosexual behavior (principal); D64.9 Anemia, unspecified
CPT/HCPCS: 85027; 86803; 87389; 87491; 87591; 82607; 82728; 82746; 83540; 83550; 86592